=== PATIENT | female | born 1985 | race Caucasian/White ===

== ENCOUNTER 2016-10-12 13:19 | Emergency (ER) | payer OTHER ==
[~2016-10-12] VITALS: Ht 172.7 cm; Wt 113.5 kg
[~2016-10-12 13:19] MED LIST: CLOT30CR24 TOP
[2016-10-12 13:24] VITALS: Ht 172.7 cm; Wt 113.5 kg
[2016-10-12] MEDS ORDERED: KETOROLAC 30 MG INJ IM STA (13:48)
--- NOTE | 2016-10-12 14:11 | ERD ---
ER Documentation Chief Complaint Date/Time DATE: 10/12/16 TIME: 14:08 Chief Complaint left knee pain HPI Patient is a 31-year-old female with no past medical history who presents to the ED with left knee pain and left ankle pain 1 week. She denies trauma or injury but states that she was standing and felt her knee lock and had a twisting sensation. She states that she has had chronic ankle pain for the last year. Denies pain in her calves. Denies pain above her knee joint. Denies falls. Denies chest pain or cough or shortness of breath. Denies abdominal pain, nausea, vomiting or diarrhea. Denies headache or dizziness. Patient also has a history of sciatica on the right side. She has not taken any medication for her symptoms. Denies recent travel or recent surgeries. No other complaints. ROS All systems reviewed and are negative except as per history of present illness. Medications Home Meds Active Scripts Naproxen* (Naprosyn*) 500 Mg Tablet, 500 MG PO BID Y for PAIN AND/OR INFLAMMATION, #30 TAB Prov:JANEEN GUO PA-C 10/12/16 Clotrimazole* (Clotrimazole* AF) 1% - 30 Gm Cream.gm., 1 APPLIC TOP BID for 28 Days, TUB Prov:SHAW MEJIA 11/22/14 Allergies Allergies: Coded Allergies: No Known Allergy (Verified , 10/12/16) PMhx/Soc Medical and Surgical Hx: pt denies Medical Hx, pt denies Surgical Hx History of Surgery: Yes () Anesthesia Reaction: No Hx Neurological Disorder: No Hx Respiratory Disorders: No Hx Cardiac Disorders: No Hx Psychiatric Problems: No Hx Miscellaneous Medical Probl: No Hx Alcohol Use: No Hx Substance Use: No Hx Tobacco Use: No Smoking Status: Never smoker Physical Exam Vitals Vital Signs Date Time Temp Pulse Resp B/P Pulse Ox O2 Delivery O2 Flow Rate FiO2 10/12/16 13:24 98.1 99 18 126/78 99 Physical Exam GENERAL: Well-developed, well-nourished female. Appears in no acute distress. HEAD: Normocephalic, atraumatic. EYES: Pupils are equally reactive bilaterally. EOMs grossly intact. No conjunctival erythema. ENT: Moist mucous membranes. No uvula deviation. No kissing tonsils. No exudates. NECK: Supple. No lymphadenopathy or thyromegaly. No meningismus. negative kernig. negative brudinski. LUNG: Clear to auscultation bilaterally. No rhonchi, wheezing, rales or coarse breath sounds. HEART: Regular rate and rhythm. No murmurs, rubs or gallops. Extremities: Equal pulses bilaterally. No peripheral clubbing, cyanosis or edema. No unilateral leg swelling. Tenderness to the inferior anterior knee. Pain with full flexion and extension. Positive Erlin's test. No pain above the knee joint. Pain at the base of the fifth metatarsal with no swelling or deformities or step-offs. Negative Homans sign. No palpable cord. NEUROLOGIC: Alert and oriented. Moving all four extremities. 5/5 strength in all extremities. Normal speech. unSteady gait. SKIN: Normal color. Warm and dry. No rashes or lesions. Capillary refill < 2 seconds Results 24 hrs Current Medications Medications (Trade) Dose Ordered Sig/Matias Route PRN Reason Start Time Stop Time Status Last Admin Dose Admin Ketorolac Tromethamine (Toradol) 30 mg ONCE STAT IM 10/12/16 13:48 10/12/16 13:50 DC 10/12/16 14:46 Procedures/MDM ER COURSE: I kept the patient and/or family informed of laboratory and diagnostic imaging results throughout the emergency room course. IMAGING STUDIES [place] [id number] Radiology Main Line: [phone] DIAGNOSTIC IMAGING REPORT Patient: JAGDISH FONSECA : 1985 Age: 31 Sex: F MR #: [id number] DOS: 10/12/16 1348 Ordering MD: JANEEN GUO PA-C Location: [facility] Room/Bed: PROCEDURE: Left ankle series CLINICAL INDICATION: Left ankle pain. TECHNIQUE: AP, oblique, and lateral views of the left ankle were obtained. COMPARISON: None FINDINGS: No acute fracture or dislocations are seen. The osseous structures are well mineralized. The ankle mortise is intact. The articular surfaces are normal. No evidence of a joint effusion is seen. The soft tissue structures are intact. Small dorsal calcaneal spur is seen. IMPRESSION: 1. Small dorsal calcaneal spur. 2. Otherwise, unremarkable left ankle series. RPTAT: HPNM Primo Falocn Physician Date Time Electronically viewed and signed by Physician Charles on 10/12/2016 14 :37 / CC: JANEEN GUO PA-C [place] [address] Radiology Main Line: [phone] DIAGNOSTIC IMAGING REPORT Patient: JAGDISH FONSECA : 1985 Age: 31 Sex: F MR #: [id number] DOS: 10/12/16 1348 Ordering MD: JANEEN GUO PA-C Location: [facility] Room/Bed: PROCEDURE: XR Knee. CLINICAL INDICATION: Left knee pain. TECHNIQUE: AP, lateral and oblique views of the left knee were obtained. The images reviewed on a PACS workstation. COMPARISON: None. FINDINGS: The bones appear intact, with no evidence of fracture, erosion, demineralization , or dislocation. The alignment of the femorotibial and patellofemoral joints appears normal. No joint space narrowing is seen. No evidence of a joint effusion is seen. No soft tissue swelling is present. IMPRESSION: Unremarkable examination of the left knee. RPTAT: HPNM Primo Falcon Physician Date Time Electronically viewed and signed by Physician Charles on 10/12/2016 14 :36 / CC: JANEEN GUO PA-C MEDICATIONS Negative test. Toradol. Tolerated well with no adverse reaction. MEDICAL DECISION MAKING: This is a 31-year-old female who presents with left knee pain x 1 week and left ankle pain x 1 year. Vital signs were reviewed. Patient is afebrile. Patient is not hypoxic. Patient's x-rays of by radiologist unremarkable for fracture dislocation. Patient has knee pain and ankle pain of unknown etiology. Low suspicion for dislocation, fracture, septic joint, compartment syndrome, osteomyelitis, cellulitis, avascular necrosis, neurological injury, vascular injury, tendon laceration. Patient was given Tra wrap and crutches here in the ED. Patient was neurovascularly intact post placement. DISCHARGE: At this time, patient is stable for discharge and outpatient management with no new complaints during the ER course. Patient was sent home with Abraham, copy of all imaging report, Tra wrap.. Patient will be discharged home with instructions to recheck for new or worsening symptoms such as fever, nausea, weakness, LOC and to follow up with primary care in the next 1-2 days. Patient was advised to return to the ER for any new or worsening symptoms. Plan was discussed and patient and/or family understands and agrees. Home instructions were given. Departure Diagnosis: Primary Impression: Knee pain Laterality: left Chronicity: acute Qualified Code: M25.562 - Acute pain of left knee Additional Impression: Ankle pain Laterality: left Chronicity: chronic Qualified Code: M25.572 - Chronic pain of left ankle Condition: Stable JANEEN GUO PA-C Oct 12, 2016 14:11
--- NOTE | 2016-10-12 14:36 | RADRPT ---
PROCEDURE: XR Knee. CLINICAL INDICATION: Left knee pain. TECHNIQUE: AP, lateral and oblique views of the left knee were obtained. The images reviewed on a PACS workstation. COMPARISON: None. FINDINGS: The bones appear intact, with no evidence of fracture, erosion, demineralization, or dislocation. T he alignment of the femorotibial and patellofemoral joints appears normal. No joint space narrowing is seen. No evidence of a joint effusion is seen. No soft tissue swelling is present. IMPRESSION: Unremarkable examination of the left knee. RPTAT: HPNM Physician Charles Date Time Electronically viewed and signed by Physician Charles on 10/12/2016 14:36 /
--- NOTE | 2016-10-12 14:38 | RADRPT ---
PROCEDURE: Left ankle series CLINICAL INDICATION: Left ankle pain. TECHNIQUE: AP, oblique, and lateral views of the left ankle were obtained. COMPARISON: None FINDINGS: No acute fracture or dislocations are seen. The osseous structures are well mineralized. The ankle mortise is intact. The articular surfaces are normal. No evidence of a joint effusion is seen. T he soft tissue structures are intact. Small dorsal calcaneal spur is seen. IMPRESSION: 1. Small dorsal calcaneal spur. 2. Otherwise, unremarkable left ankle series. RPTAT: HPNM Physician Charles Date Time Electronically viewed and signed by Physician Charles on 10/12/2016 14:37 /
[2016-10-12] MEDS ORDERED: NAPR-260 PO (14:44)
== END 2016-10-12 15:00 | disposition home or self-care (01) ==
LOC: FTE 13:19
DX: M25.562 Pain in left knee (principal); M25.572 Pain in left ankle and joints of left foot
CPT/HCPCS: 73562; 73610; 96372; J1885; Z7502